=== PATIENT | male | born 1975 | race Two or more races ===

== ENCOUNTER 2024-09-13 14:48 | Emergency (ER) | payer MEDICAID, SELFPAY ==
[2024-09-13 15:17] VITALS: BP 130/63; PULSE 89; RESP 18; TEMP 36.6; O2SAT 99
--- NOTE | 2024-09-13 15:29 | EDNOTE_ITS ---
ED Wound/Laceration-RME/HPI General Chief Complaint: Wound/Laceration Stated Complaint: LACERATION TO LEFT FINGER Time Seen by Provider: 09/13/24 15:08 Arrival date/time: 09/13/24 14:48 RME / HPI RME / HPI narrative: 48-year-old male patient came in for evaluation regarding laceration to the left index finger. Onset of symptoms earlier this morning patient accidentally cut himself with a knife. Patient is able to bend and extend the finger without any difficulty. Tetanus vaccination is unknown Related Data Home Medications ?Medication ?Instructions ?Recorded ?Confirmed fluconazole 200 mg tablet 800 mg PO QDAY 09/23/17 05/10/05 (Diflucan) Allergies Allergy/AdvReac Type Severity Reaction Status Date / Time No Known Allergies Allergy Verified 09/13/24 14:50 Review of Systems Review of Systems Narrative Review of Systems: Review of system reviewed and within normal limits except mentioned in HPI ED Exam Narrative Physical exam: VITAL SIGNS: Reviewed. GENERAL APPEARANCE: Alert and interactive, follows commands, no acute distress, HEAD AND FACE: Non-traumatic. ENT: PERRL, pink conjunctivitis, eyelid no trauma, Mucous membrane moist. NECK: Supple, nontender, no nuchal rigidity. CHEST: No tenderness, no crepitus, no paradoxical movement, no retractions. LUNGS: Clear, well ventilated, symmetric, no rales, no wheezing, no ronchi, no stridor, good breath sounds bilaterally. HEART: Regular rate, regular rhythm, no murmur, no gallops. ABDOMEN: Soft, positive bowel sounds, nondistended, no guarding, nontender, no rebound, no masses, RECTAL: Deferred. GENITAL: Deferred. NEUROLOGICAL: Gross motor function intact sensory function intact, Appropriate for age. MUSCULOSKELETAL: low back nontender, full range of motion. EXTREMITIES: 2 cm gaping laceration, left index finger full range of motion of the index finger, SKIN: Color pink, dry, no rash, no lacerations, no abrasions, no contusions. LYMPHATICS: Deferred. Course Quality Measures none Orders Category Date Time Status TET,DIP/PERT AC (Adult)-Tdap [Boostrix Adult (Tdap) Med 09/13/24 15:29 Discontinued Vacc] 0.5 ml IMI .ONCE ONE Vital Signs Vital signs: Vital Signs Temperature 98 F 09/13/24 15:17 Pulse Rate 89 09/13/24 15:17 Respiratory Rate 18 09/13/24 15:17 Blood Pressure 130/63 09/13/24 15:17 Pulse Oximetry (%) 99 09/13/24 15:17 Oxygen Delivery Method Room Air 09/13/24 15:17 Procedures -ED Laceration Laceration 1: Site: other (finger, index) Size (cm): 2 Description: linear Depth: simple, single layer Local Anesthetic: lidocaine 1% Amount of anesthesia used (mL): 2 Pre-repair: wound explored Skin layer closed with: nylon Size (cm): 5-0 Number of sutures: 3 Technique: simple, interrupted Wound / Laceration MDM Narrative MDM Narrative:: 48-year-old male patient came in for evaluation regarding laceration to the left index finger. Onset of symptoms earlier this morning patient accidentally cut himself with a knife. Patient is able to bend and extend the finger without any difficulty. Tetanus vaccination is unknown Repair and suturing was done by me. See procedure notes Patient received Boostrix Patient data External records reviewed:: None Clinical information provided by:: patient Social determinants that could affect healthcare access:: none Patient has the following chronic illnesses:: None How is presenting disease/condition affected by chronic disease/condition?: no chronic disease Evaluation data The following diagnostics were reviewed and interpreted by me:: other (specify) Lab and/or radiology exams considered but not ordered:: None Interpretation Summary: None Medications / Prescriptions Medications or Prescriptions considered but not ordered:: None Medication administrations:: Medication Administration History Discontinued Medications Diphtheria/Tetanus/Acell Pertussis (Diphth,Pertuss(Acell),Tet Vac 0.5 Ml Syr- Adult) 0.5 ml IMi .ONCE ONE Stop: 09/13/24 15:30 Last Admin: 09/13/24 16:22 Dose: 0.5 ml Documented By: Boostrix Consultations Consultation(s) initiated? (list below): No Diagnosis Wound Differential Diagnosis: laceration, abrasion and avulsion of skin Most likely diagnosis given after review of the tests above:: Finger laceration Admission Indicated Admission indicated?: not indicated Explain why admission is indicated or not indicated:: Stable Admission Request Was there a request for admission?: No Disposition Plan Disposition Plan: Discharge Discharge Attestation Discharge Attestation: The patient was given an opportunity to ask questions and understood the discharge instructions. Discharge instructions specifically effects, indications for sooner follow up or return to the emergency department, and the expected course of current diagnosis. Patient condition: Stable Discharge Plan Plan Patient Disposition: HOME (Self Care) Disposition Comment: Stable Prescriptions/Referrals Prescriptions/Med Rec: No Action fluconazole [Diflucan] 200 mg tablet 800 mg PO QDAY Referrals: No Primary/Family,Physician [Primary Care Provider] - In 1 week Problem List Clinical Impression: Finger laceration Patient/Caregiver Discharge Instructions Discharge Activity: activity as tolerated Education Materials: ED Laceration: All Closures Additional Instructions: Thank you for the opportunity for serving you today. You are stable for discharged . You are advised to: Follow-up with your PCP in 1 to 2 days Return to ED for worsening of symptoms Increase oral fluids Daily dressing with Neosporin as needed For removal of sutures in 7 days Print Language: Congolese Stand Alone Forms: Zein[employer] Award Info., Patient Portal Info Letter
[2024-09-13] MEDS: DIPHTH,PERTUSS(ACELL),TET VAC 0.5 ML SYR- ADULT IMi (16:22)
== END 2024-09-13 17:20 | disposition home or self-care (01) ==
PROVIDERS: Emergency Provider Emergency Medicine
DX: S61.211A Laceration without foreign body of left index finger without damage to nail, initial encounter (principal); W26.0XXA Contact with knife, initial encounter; Z23 Encounter for immunization
CPT/HCPCS: 12001; 90471; 90715; 99283

== ENCOUNTER 2025-01-31 00:06 | Emergency (ER) | payer MEDICAID, SELFPAY ==
[2025-01-31 00:08] VITALS: BMI 25.1
--- NOTE | 2025-01-31 00:09 | EKG_ITS ---
[facility] Test Date: 2025-01-31 Pat Name: JEOVANNY HALE Department: Room: - Gender: Male Analytical Manager: : 1975 Requested By: ED Temporary Provider Order Number: [id number] Reading MD: ED Temporary Provider Measurements Intervals Council Rate: 80 P: 62 CT: 135 QRS: 66 QRSD: 85 T: 67 QT: 354 QTc: 409 Interpretive Statements SINUS RHYTHM No previous ECG available for comparison /store/S0/[id number]/ecg/[id number].pdf
[2025-01-31 00:22] VITALS: BP 120/80; PULSE 83; RESP 16; TEMP 36.8; O2SAT 98
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
[2025-01-31 01:21] LABS: Basophils # (Auto) 0.0 Thou/mm3 (0.0-0.2); Basophils % (Auto) 0 % (0-2.5); Eosinophils # (Auto) 0.3 Thou/mm3 (0.0-0.5); Eosinophils % (Auto) 5 % (0-10); Hematocrit 43.1 % (41.0-53.0); Hemoglobin 14.3 g/dL (13.5-16.0); Immature Granulocytes Auto 0.02 Thou/mm3 (0.00-0.00); Lymphocytes # (Auto) 2.9 Thou/mm3 (1.0-4.8); Lymphocytes % (Auto) 39 % (10-50); Mean Corpuscular HGB Conc 33.2 g/dl (31.0-37.0); Mean Corpuscular Hemoglobin 27.6 pg (25.0-35.0); Mean Corpuscular Volume 83 fL (80-100); Monocytes # (Auto) 0.7 Thou/mm3 (0.0-0.8); Monocytes % (Auto) 9 % (0-12); Neutrophils # (Auto) 3.4 Thou/mm3 (1.8-7.7); Neutrophils % (Auto) 47 % (37-80); Nucleated Red Blood Cell # 0.00 Thou/mm3 (0.00-0.00); Nucleated Red Blood Cell % 0 /100 WBC (0); Platelet Count 196 Thou/mm3 (140-440); RDW Standard Deviation 39.8 fL (35.1-43.9); Red Blood Count 5.18 Miln/mm3 (4.50-5.90); White Blood Count 7.3 Thou/mm3 (3.8-10.6)
--- NOTE | 2025-01-31 01:23 | XR_ITS ---
Examination: PA lateral chest 2 views TECHNIQUE: Upright PA and lateral chest 2 views Date and time: January 31, 2025, 0130 hours, comparison 03/03/2018 INDICATION: Chest pain today. FINDINGS: Mild opacity left base obscuring detail lateral portion left hemidiaphragm. Normal heart size Right lung clear. Moderate osteopenia. Impression: Early pneumonia left base
[2025-01-31 01:47] LABS: B-Type Natriuretic Peptide < 20 pg/mL (0-100)
[2025-01-31 01:48] LABS: Amphetamine/Methamp Scrn,U Negative (Negative); Barbiturate Screen,Urine Negative (Negative); Benzodiazepines Screen,Urine Negative (Negative); Benzoylecgonine Screen, Ur Negative (Negative); Fentanyl Screen,Urine Negative (Negative); Opiate Screen,Urine Negative (Negative); THC Screen,Urine Negative (Negative)
[2025-01-31 01:48] LABS: Alanine Aminotransferase 17 U/L (10-49); Albumin, Serum 4.6 gm/dL (3.5-5.0); Albumin/Globulin Ratio 1.9 (1.2-2.2); Alkaline Phosphatase 125 U/L (46-116); Anion Gap 7 (7-16); Aspartate Amino Transferase 16 U/L (0-34); BUN/Creatinine Ratio 11 Ratio (12-20); Bilirubin,Total 0.6 mg/dL (0.3-1.2); Blood Urea Nitrogen 10 mg/dL (9-23); Calcium 9.7 mg/dL (8.3-10.6); Calcium (Corrected) 9.7 mg/dL (8.5-10.1); Carbon Dioxide 26.4 mMol/L (20.0-31.0); Chloride 108 mMol/L (98-107); Creatinine (Component) 0.9 mg/dL (0.6-1.3); Estimated Creatinine Clearance 101.4 mL/min (>60); Globulin 2.4 gm/dL (2.3-3.5); Glucose 97 mg/dL (74-106); Osmolality,Calculated 280 (275-295); Potassium 4.4 mMol/L (3.4-5.1); Sodium 141 mMol/L (136-145); Total Protein 7.0 gm/dL (5.7-8.2); Troponin I < 0.002 ng/mL (0.0-0.045); eGFR > 60 See Note
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
[2025-01-31 02:55] VITALS: BP 128/79; PULSE 67; RESP 16; TEMP 36.7; O2SAT 98
== END 2025-01-31 02:57 | disposition home or self-care (01) ==
PROVIDERS: Physician Assistant; Emergency Provider Emergency Medicine; PCP Family Medicine
DX: R07.89 Other chest pain (principal)
CPT/HCPCS: 36415; 71046; 80053; 80307; 83880; 84484; 85025; 93005; 99283

== ENCOUNTER 2025-05-26 21:25 | Emergency (ER) | payer MEDICAID, SELFPAY ==
[2025-05-26 21:28] VITALS: PULSE 72; RESP 16; O2SAT 98; BMI 25.2
[2025-05-26 21:30] VITALS: BP 133/87; PULSE 74; RESP 19; TEMP 36.7; O2SAT 98; BMI 25.2
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
[2025-05-26 23:48] VITALS: BP 128/76; PULSE 76; RESP 18; TEMP 36.6; O2SAT 98
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
== END 2025-05-26 23:49 | disposition home or self-care (01) ==
PROVIDERS: Emergency Provider Emergency Medicine; PCP Family Medicine
DX: S33.5XXA Sprain of ligaments of lumbar spine, initial encounter (principal); S13.4XXA Sprain of ligaments of cervical spine, initial encounter; S23.3XXA Sprain of ligaments of thoracic spine, initial encounter; S20.219A Contusion of unspecified front wall of thorax, initial encounter; V43.52XA Car driver injured in collision with other type car in traffic accident, initial encounter
CPT/HCPCS: 71045; 72040; 72050; 72072; 72100; 99282